=== PATIENT | female | born 1955 | race Caucasian/White ===

== ENCOUNTER → 2019-02-20 10:21 | Outpatient (POV) | payer MEDICAID, SELFPAY ==
--- NOTE | 2019-02-20 12:47 | XR_ITS ---
XR chest 2V HISTORY: ITS.REASON: DYSPNEA ON EXERTION ORDERING PHYSICIAN: Isaiah Gerber MD PATIENT AGE: 63 years COMPARISON: 07/23/2011 FINDINGS: The cardiomediastinal silhouette and pulmonary vascularity are within normal limits. Mediport catheter is present from left subclavian approach with the tip in the region of the SVC.. Slight increased markings are present in the right lower lung zone medially. The remaining lungs are clear. No acute bony findings. IMPRESSION: Increased markings right infrahilar region may be related to an area of atelectasis or infiltrate. Suggest follow-up to confirm resolution
[2019-02-20 12:48] LABS: Basophils % 0.3 % (0.1-2.0); Eosinophils # 0.1 K/mm3 (0.0-0.4); Eosinophils % 2.2 % (0.1-12.0); Hematocrit 45.3 % (37.0-47.0); Hemoglobin 14.1 g/dL (12.2-16.2); Lymphocytes # 1.5 K/mm3 (0.7-4.5); Lymphocytes % 29.1 % (10-50); Mean Corpuscular HGB Conc 31.1 g/dL (31.8-35.4); Mean Corpuscular Hemoglobin 29.3 pg (27.0-31.2); Mean Platelet Volume 8.8 fl (7.4-10.4); Monocytes # 0.4 K/mm3 (0.1-1.0); Monocytes % 6.8 % (1.7-9.3); Neutrophils # 3.2 K/mm3 (1.8-7.8); Neutrophils % 61.6 % (37.0-80.0); Platelet Count 245 K/mm3 (142-424); Red Blood Count 4.82 M/mm3 (4.20-5.40); Red Cell Distribution Width 14.7 % (11.5-17.5); White Blood Count 5.2 K/mm3 (4.8-10.8)
[2019-02-20 15:28] LABS: Alanine Aminotransferase 46 U/L (12-78); Albumin Level 3.3 gm/dL (3.4-5.0); Albumin/Globulin Ratio 0.9 (1.1-1.8); Alkaline Phosphatase 129 U/L (46-116); Aspartate Amino Transferase 34 U/L (15-37); Bilirubin,Total 0.7 mg/dL (0.2-1.0); Blood Urea Nitrogen 17 mg/dL (7-18); Calcium 8.6 mg/dL (8.5-10.1); Carbon Dioxide 29 mmol/L (21.0-32.0); Chloride 104 mmol/L (98-107); Creatinine,Serum 0.98 mg/dL (0.55-1.02); Estimated Glomerular Filt Rate 58 ml/min (>60); GFR (African American) 70 ML/MIN (>60); Globulin 3.5 gm/dl (1.3-3.2); Glucose 353 mg/dL (74-106); Sodium 141 mmol/L (136-145); Thyroid Stimulating Hormone 2.92 uIU/ml (0.358-3.740); Total Protein,Serum 6.8 gm/dL (6.4-8.2)
[2019-02-27 02:07] LABS: D001-IgE D pteronyssinus <0.10 kU/L (Class 0); D002-IgE D farinae <0.10 kU/L (Class 0); E001-IgE Cat Dander <0.10 kU/L (Class 0); E005-IgE Dog Dander <0.10 kU/L (Class 0); G002-IgE Bermuda Grass <0.10 kU/L (Class 0); G006-IgE Timothy Grass <0.10 kU/L (Class 0); I006-IgE Cockroach, German <0.10 kU/L (Class 0); Immunoglobulin E, Total 22 IU/mL (6-495); M001-IgE Penicillium chrysogen <0.10 kU/L (Class 0); M002-IgE Cladosporium herbarum <0.10 kU/L (Class 0); M003-IgE Aspergillus fumigatus <0.10 kU/L (Class 0); M006-IgE Alternaria alternata <0.10 kU/L (Class 0); T001-IgE Maple/Box Elder <0.10 kU/L (Class 0); T003-IgE Common Silver Birch <0.10 kU/L (Class 0); T006-IgE Cedar, Mountain <0.10 kU/L (Class 0); T007-IgE Oak, White <0.10 kU/L (Class 0); T008-IgE Elm, American <0.10 kU/L (Class 0); T010-IgE Walnut <0.10 kU/L (Class 0); T011-IgE Maple Leaf Sycamore <0.10 kU/L (Class 0); T014-IgE Cottonwood <0.10 kU/L (Class 0); T015-IgE Ash, White <0.10 kU/L (Class 0); T022-IgE Pecan, Hickory <0.10 kU/L (Class 0); T070-IgE White Mulberry <0.10 kU/L (Class 0); W001-IgE Ragweed, Short <0.10 kU/L (Class 0); W011-IgE Thistle, Russian <0.10 kU/L (Class 0); W014-IgE Pigweed, Common <0.10 kU/L (Class 0); W018-IgE Sheep Sorrel <0.10 kU/L (Class 0)
[2019-02-28 07:08] LABS: E005-IgE Dog Dander <0.10 kU/L (Class 0)
[2019-02-28 13:39] LABS: E072-IgE Mouse Urine <0.10 kU/L (Class 0)
== END ==
PROVIDERS: Nurse Practitioner Family; Visit Provider Internal Medicine
DX: R00.0 Tachycardia, unspecified (principal); J45.909 Unspecified asthma, uncomplicated; R06.09 Other forms of dyspnea
CPT/HCPCS: 36415; 71046; 80053; 82785; 84443; 85025; 86003

== ENCOUNTER 2019-03-28 10:55 | Outpatient (CLI) | payer MEDICAID, SELFPAY | END 2019-03-28 11:35 | disposition home or self-care (01) | LOC: INF 10:59 | PROVIDERS: Visit Provider Nurse Practitioner Family | DX: I87.2 Venous insufficiency (chronic) (peripheral) (principal); Z45.2 Encounter for adjustment and management of vascular access device | CPT/HCPCS: 96523; J1642 ==

== ENCOUNTER 2019-05-07 09:33 | Outpatient (CLI) | payer MEDICAID, SELFPAY ==
[2019-05-07 10:34] VITALS: PULSE 80
== END 2019-05-07 11:20 | disposition home or self-care (01) ==
LOC: RT 09:36 → INF 11:09
PROVIDERS: PCP Nurse Practitioner Family; Visit Provider Internal Medicine
DX: R06.09 Other forms of dyspnea (principal); J45.909 Unspecified asthma, uncomplicated; I87.2 Venous insufficiency (chronic) (peripheral)
CPT/HCPCS: 94060; 94618; 94640; 94726; 94729; 96523; J1642

== ENCOUNTER → 2019-05-29 10:10 | Outpatient (POV) | payer MEDICAID, SELFPAY | PROVIDERS: Visit Provider Internal Medicine | DX: Z00.00 Encounter for general adult medical examination without abnormal findings (principal) ==